=== PATIENT | female | born 2000 | race African-American/Black ===

== ENCOUNTER 2024-05-06 15:54 | Emergency (ER) | payer SELFPAY ==
[~2024-05-06] VITALS: Ht 157.5 cm; Wt 55.0 kg
[2024-05-06 16:52] VITALS: TEMP 98.5; O2SAT 100
[2024-05-06] MEDS ORDERED: IBUP-2029 MT (17:50)
[2024-05-06 18:00] VITALS: BP 118/83; PULSE 136; RESP 18
[2024-05-06] MEDS: IBUPROFEN 400MG TABLET PO ONE (18:00)
== END 2024-05-06 18:12 | disposition home or self-care (01) ==
LOC: ER 15:54
DX: S62.625A Displaced fracture of middle phalanx of left ring finger, initial encounter for closed fracture (principal); X58.XXXA Exposure to other specified factors, initial encounter; Y93.89 Activity, other specified; Y92.89 Other specified places as the place of occurrence of the external cause; Y99.8 Other external cause status
CPT/HCPCS: 29130; 73130; 99283

== ENCOUNTER 2024-09-26 20:56 | Emergency (ER) | payer MEDICAID ==
[~2024-09-26] VITALS: Ht 160 cm; Wt 43.5 kg
[~2024-09-26 20:56] MED LIST: IBUP-2029 MT
[2024-09-26 20:58] VITALS: O2SAT 100
[2024-09-26 21:16] VITALS: BP 125/90; PULSE 96; RESP 18; TEMP 98.6; O2SAT 100
[2024-09-26] MEDS: ACETAMINOPHEN 500MG TABLET PO ONE (22:52)
== END 2024-09-27 01:51 | disposition home or self-care (01) ==
LOC: ER 20:56
DX: S06.0XAA Concussion with loss of consciousness status unknown, initial encounter (principal); R51.9 Headache, unspecified; Y08.89XA Assault by other specified means, initial encounter; Y93.89 Activity, other specified; Y92.89 Other specified places as the place of occurrence of the external cause; Y99.8 Other external cause status
CPT/HCPCS: 70486; 81025; 99284